=== PATIENT | male | born 2000 | race Caucasian/White ===

== ENCOUNTER 2021-09-21 17:21 | Outpatient (REF) | payer OTHER, SELFPAY ==
[2021-09-21 21:56] LABS: ALT 283 U/L (16-63); AST 99 U/L (15-37); Alkaline Phosphatase 66 U/L (46-116); Anion Gap 9.5 mmol/L (3-11); BUN 14 mg/dL (7-18); Bilirubin, Total 1.4 mg/dL (0.2-1.0); CO2 28.5 mmol/L (21.0-32.0); Calcium 9.6 mg/dL (8.5-10.1); Calculated LDL 116 mg/dL (<100); Chloride 101 mmol/L (98-107); Cholesterol 184 mg/dL (<200); Glucose 85 mg/dL (74-106); HDL Cholesterol 56 mg/dL (40-60); Potassium 4.1 mmol/L (3.5-5.1); Sodium 139 mmol/L (136-145); TSH (W/Ref FT4) 1.81 uIU/mL (0.36-3.74); Triglyceride 61 mg/dL (<150)
[2021-09-21 22:06] LABS: Bilirubin, Direct 0.3 mg/dL (0.0-0.2)
[2021-09-28 11:16] LABS: Hepatitis A Antibody IgM Negative (Negative); Hepatitis B Core Antibody Negative (Negative); Hepatitis B surface Ag Negative (Negative); Hepatitis C Ab w Rflx HCV PCR Negative (Negative)
== END 2021-09-21 17:22 | disposition home or self-care (01) ==
LOC: NCHCN 17:21
PROVIDERS: PCP Nurse Practitioner Family; Visit Provider Nurse Practitioner Family
DX: F32.9 Major depressive disorder, single episode, unspecified (principal); E55.9 Vitamin D deficiency, unspecified; E66.9 Obesity, unspecified; E78.89 Other lipoprotein metabolism disorders
CPT/HCPCS: 80053; 80061; 82306; 86704; 86709; 86803; 87340; 82248; 84443

== ENCOUNTER 2021-11-22 17:44 | Outpatient (REF) | payer OTHER, SELFPAY ==
[2021-11-22 21:16] LABS: ALT 186 U/L (16-63); AST 66 U/L (15-37); Albumin 4.9 g/dL (3.4-5.0); Alkaline Phosphatase 62 U/L (46-116); Bilirubin, Direct 0.2 mg/dL (0.0-0.2); Bilirubin, Total 1.3 mg/dL (0.2-1.0); Total Protein 7.7 g/dL (6.4-8.2)
[2021-11-23 09:40] LABS: Iron 63 ug/dL (65-175); Total Iron Binding Capacity 386 ug/dL (250-450); Transferrin Sat 16 % (20-55)
[2021-11-23 10:08] LABS: Vitamin B12 842 pg/mL (193-986)
[2021-11-23 17:26] LABS: Ferritin 181 ng/mL (22-322)
== END 2021-11-22 17:45 | disposition home or self-care (01) ==
LOC: NCHCN 17:44
PROVIDERS: PCP Nurse Practitioner Family; Visit Provider Nurse Practitioner Family
DX: R74.01 Elevation of levels of liver transaminase levels (principal); R17 Unspecified jaundice; E55.9 Vitamin D deficiency, unspecified
CPT/HCPCS: 80076; 82306; 82607; 82728; 82746; 83540; 83550

== ENCOUNTER 2021-11-26 16:05 | Outpatient (REF) | payer OTHER, SELFPAY ==
[2021-11-26 15:20] LABS: Abs Immature Grans 0.04 10^3/uL (0.0-0.06); Absolute Basophil Count 0.03 10^3/uL (0.0-0.2); Absolute Eosinophil Count 0.15 10^3/uL (0.0-0.7); Absolute Monocyte Count 0.39 10^3/uL (0.1-0.8); Absolute Neutrophil Count 2.69 10^3/uL (1.2-6.7); Basophils % 0.6; Eosinophils % 3.1; HCT 44.7 % (40.0-50.0); HGB 14.8 g/dL (13.5-17.5); Immature Grans % 0.8; Lymphocytes % 32.7; MCH 27.9 pg (27.0-33.0); MCHC 33.1 % (32.0-36.0); MCV 84.3 fL (80-95); MPV 11.5 fL (8.0-11.0); Neutrophils % 54.8; Nucleated RBC 0 %; Platelet Count 230 10^3/uL (130-400); RDW 12.1 % (11.8-14.1); RDW-SD 37.3 fL
[2021-11-26 15:37] LABS: Hemoglobin A1C 5.1 % (<5.7)
[2021-11-26 15:53] LABS: Folate 12.4 ng/mL (8.6-20.0)
[2021-11-29 12:58] LABS: HBs Antibody, Quant 15.5 mIU/mL (See Note); Hepatitis B Surface Ab Positive (See Note)
[2021-11-29 13:12] LABS: Hepatitis B Surface Ag Negative (Negative)
[2021-11-29 13:39] LABS: Hep B Core Antibody Negative (Negative)
== END 2021-11-26 16:06 | disposition home or self-care (01) ==
LOC: NCHCN 16:05
PROVIDERS: PCP Nurse Practitioner Family; Visit Provider Nurse Practitioner Family
DX: R74.01 Elevation of levels of liver transaminase levels (principal); E66.9 Obesity, unspecified; D64.9 Anemia, unspecified
CPT/HCPCS: 86704; 86706; 87340; 82746; 83036; 85025

== ENCOUNTER 2022-08-03 16:46 | Outpatient (REF) | payer OTHER, SELFPAY ==
[2022-08-03 14:00] LABS: HCT 43.1 % (40.0-50.0); HGB 14.8 g/dL (13.5-17.5); MCH 28.7 pg (27.0-33.0); MCHC 34.3 % (32.0-36.0); MCV 84 fL (80-95); MPV 11.2 fL (8.0-11.0); Platelet Count 215 10^3/uL (130-400); RBC 5.15 10^6/uL (4.36-5.78); RDW 12.2 % (11.8-14.1); RDW-SD 37.1 fL; WBC 4.84 10^3/uL (4.4-10.8)
[2022-08-03 14:22] LABS: ALT 129 U/L (16-63); AST 46 U/L (15-37); Albumin 4.5 g/dL (3.4-5.0); Alkaline Phosphatase 57 U/L (46-116); Anion Gap 5.8 mmol/L (3-11); BUN 18 mg/dL (7-18); Bilirubin, Direct 0.2 mg/dL (0.0-0.2); Bilirubin, Total 1.9 mg/dL (0.2-1.0); CO2 29.2 mmol/L (21.0-32.0); CREATININE 1.1 mg/dL (0.70-1.30); Calcium 9.4 mg/dL (8.5-10.1); Chloride 104 mmol/L (98-107); Estimated GFR 97.34 (mL/min/1.73m2); Glucose 90 mg/dL (74-106); Potassium 3.8 mmol/L (3.5-5.1); Sodium 139 mmol/L (136-145); Total Protein 7.7 g/dL (6.4-8.2)
[2022-08-03 14:24] LABS: Hemoglobin A1C 5.5 % (<5.7)
== END 2022-08-03 16:47 | disposition home or self-care (01) ==
LOC: NCHCN 16:46
PROVIDERS: PCP Nurse Practitioner Family; Visit Provider Nurse Practitioner Family
DX: R74.01 Elevation of levels of liver transaminase levels (principal); E80.6 Other disorders of bilirubin metabolism; R79.89 Other specified abnormal findings of blood chemistry
CPT/HCPCS: 80053; 85027; 82248; 83036

== ENCOUNTER 2023-10-02 22:10 | Emergency (ER) | payer OTHER, SELFPAY ==
[2023-10-02 22:30] VITALS: BP 180/103; PULSE 100; RESP 16; TEMP 36.8; O2SAT 99
--- NOTE | 2023-10-02 22:45 | RT.EKG_ITS ---
APPROVED REPORT Exam: Resting ECG Reason for Exam: palpitations Patient Location: E HR:87 bpm ECG Measurements Heart Rate 87 AXIS WY 155 P 30 QRSd 100 QRS 12 QT 345 T 24 QTc 416 Conclusion Sinus rhythm...normal P axis, V-rate 60- 99 Physician: no stemi
[2023-10-02 23:01] LABS: Abs Immature Grans 0.03 10^3/uL (0.0-0.06); Absolute Basophil Count 0.04 10^3/uL (0.0-0.2); Absolute Eosinophil Count 0.09 10^3/uL (0.0-0.7); Absolute Lymphocyte Count 1.44 10^3/uL (1.2-3.4); Absolute Monocyte Count 0.34 10^3/uL (0.1-0.8); Absolute Neutrophil Count 4.96 10^3/uL (1.2-6.7); Basophils % 0.6; Eosinophils % 1.3; HCT 44.3 % (40.0-50.0); HGB 15.3 g/dL (13.5-17.5); Immature Grans % 0.4; Lymphocytes % 20.9; MCH 27.9 pg (27.0-33.0); MCHC 34.5 % (32.0-36.0); MCV 81 fL (80-95); MPV 10.2 fL (8.0-11.0); Monocytes % 4.9; Neutrophils % 71.9; Platelet Count 260 10^3/uL (130-400); RBC 5.49 10^6/uL (4.36-5.78); RDW 12.1 % (11.8-14.1); RDW-SD 35.7 fL
[2023-10-02] MEDS: Lactated Ringers 1,000 ML 1000 ML IV (23:22)
--- NOTE | 2023-10-02 23:26 | ED.GENADUL_ITS ---
Discharge Plan Disposition Patient Disposition: Home Condition: Good Discharge Details Clinical Impression: Hypertension Primary Care Provider: Emelia Velasquez ED Provider: Brian Webb Home Meds and New Rx's Prescriptions: New lisinopril 10 mg tablet 10 mg PO DAILY 60 Days Qty: 60 0RF Discharge Instructions Instructions: Hypertension (ED) Additional Instructions: At this time your workup has returned and is reassuring. Your thyroid function is normal. Your electrolytes are stable. Please avoid caffeinated products. Try to cut down on your nicotine if possible. Please take the lisinopril for your hypertension as directed. Do this for the next 30 to 60 days and please follow-up closely with your primary care provider in the meantime. If you notice any worsening of your symptoms, or any new symptoms such as vomiting, diarrhea, fever, chills, shortness of breath, chest pain, numbness, weakness, or fainting , please return immediately to the emergency department for reevaluation. Please follow up with your primary care provider as soon as possible for reassessment and reevaluation. As always, it was a pleasure participating in your medical care today. Referrals: Emelia Velasquez [Primary Care Provider] - Medical Decision Making This is a pleasant 23-year-old male with no significant past medical history who presents today for elevated blood pressure and a sensation that his heart is beating harder than normal. He states that over the last 3 to 4 days he has noticed the sensations. His heart rate when tested has been around 80. He denies any syncope, lightheadedness or vision changes. He denies any vomiting or diarrhea. He denies any chest pain or shortness of breath. He drinks normally about 2 to 3 cups of coffee per day, but has been cutting down over the last few weeks. Today he only drank half a cup, which has been the norm for the last few days. He does do nicotine pouches, but has not changed or increased these at all. He denies any cocaine or meth use. He has used cocaine once in the distant past but not recently. He does not take any other me dications or supplements. He does have a longstanding history of elevated blood pressure, but has not been on any medication. Previously he has been managing it with diet and exercise. No other complaints at this time. No other modifying factors. No family history of sudden , severe cardiac dysrhythmias, or other concerning history. Exam demonstrates well-appearing male, no thyromegaly. Lung sounds are clear, heart unremarkable. Aside for his hypertension no other abnormalities. Differential includes thyroid dysfunction, electrolyte abnormality. Doubt dysrhythmia. EKG benign, no delta wave, epsilon wave, or other significant abnormalities. Patient is otherwise stable. Will get blood work to evaluate for signs of electrolyte dysfunction or thyroid dysfunction. Will monitor closely and reassess. 11:34 PM. Laboratory workup shows no significant abnormalities. Thyroid function normal. Bilirubin mildly elevated. No abdominal tenderness or pain to suggest choledocholithiasis, cholangitis, or cholecystitis. 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 Patient otherwise stable for discharge. Will give lisinopril 10 mg daily for home use. Discussed red flags for which to return. At this time there is no evidence of significant acute life-threatening etiology from a cardiac perspective or otherwise. I have extensively reviewed the treatment plan and discharge instructions with the patient. I have addressed all patient concerns at this time. The patient was made aware of what symptoms to monitor for that would warrant a return to the emergency department. Discussed the plan with the patient, they demonstrate verbal understanding and agreement with our assessment and plan at this time. The documentation in this chart was dictated using [employer] dictation software. Please excuse any dictation errors. HPI General Date/Time Provider Initiated Documentation: 10/02/23 22:35 . HPI Narrative: This is a pleasant 23-year-old male with no significant past medical history who presents today for elevated blood pressure and a sensation that his heart is beating harder than normal. He states that over the last 3 to 4 days he has noticed the sensations. His heart rate when tested has been around 80. He denies any syncope, lightheadedness or vision changes. He denies any vomiting or diarrhea. He denies any chest pain or shortness of breath. He drinks normally about 2 to 3 cups of coffee per day, but has been cutting down over the last few weeks. Today he only drank half a cup, which has been the norm for the last few days. He does do nicotine pouches, but has not changed or increased these at all. He denies any cocaine or meth use. He has used cocaine once in the distant past but not recently. He does not take any other medications or supplements. He does have a longstanding history of elevated blood pressure, but has not been on any medication. Previously he has been managing it with diet and exercise. No other complaints at this time. No other modifying factors. No family history of sudden , severe cardiac dysrhythmias, or other concerning history. Related Data Home Medications Medication Instructions Recorded Confirmed lisinopril 10 mg tablet 10 mg PO DAILY 60 days #60 tabs 10/02/23 Previous Rx's Medication Instructions Recorded lisinopril 10 mg tablet 10 mg PO DAILY 60 days #60 tabs 10/02/23 Allergies Allergy/AdvReac Type Severity Reaction Status Date / Time No Known Allergies Allergy Unverified 10/02/23 22:40 General Stated Complaint: Palpitatns TOMY: 3 Review of Systems All systems reviewed & are unremarkable except as noted in HPI and below PFSH All Active Problems (Updated 10/02/23 @ 23:31 by Brian Webb DO) Hypertension (Chronic) Social History Smoking/Tobacco Use Status: Never Smoking risk assessment performed?: Yes Alcohol Intake: current Alcohol Intake frequency: holidays/special occasions only Substance use type: does not use Do you feel safe at home: Yes Do you feel safe in your relationship?: Yes Exam Narrative Exam Narrative: 1.Const: Well-nourished, Well-developed, appearing stated age 2.Eyes: PERRL, no conjunctival injection, and symmetrical lids. 3.ENT: Atraumatic external nose and ears. Moist MM. Neck: Symmetric, trachea midline, No thyromegaly. 4.CVS: +S1/S2, No murmurs or gallops. Peripheral pulses 2+ and equal in all ext remities. Brisk capillary refill in all extremities. 5.RESP: Unlabored respiratory effort. Clear to auscultation bilaterally. No wheezes rales or rhonchi 6.GI: Soft, Nontender/Nondistended, No hepatosplenomegaly. No guarding or rebound. 7.MSK: Normocephalic/Atraumatic, Extremities w/o deformity or ttp No cyanosis or clubbing, Normal movement of all extremities 8.Skin: Warm, Dry. No rashes or lesions. 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 Sensation grossly intact, no focal neurologic deficits. 10.Psych: (AAO) x3. Appropriate mood and affect Course Vital Signs Vital signs: Vital Signs Temperature 36.8 C 10/02/23 22:30 Pulse 100 H 10/02/23 22:30 Respiratory Rate 16 10/02/23 22:30 Blood Pressure 180/103 H 10/02/23 22:30 Pulse Oximetry 99 10/02/23 22:30 Temperature 36.8 C 10/02/23 22:30 Temperature Source Temporal Artery Scan 10/02/23 22:30 Pulse 100 H 10/02/23 22:30 Respiratory Rate 16 10/02/23 22:30 Respiratory Effort Normal, Non-Labored 10/02/23 22:35 Blood Pressure 180/103 H 10/02/23 22:30 Blood Pressure Position Sitting 10/02/23 22:30 Pulse Oximetry 99 10/02/23 22:30 Oxygen Delivery Method Room Air 10/02/23 22:30 Oxygen Flow Rate 0 10/02/23 22:30 Lab/Test Results Lab/Test Results: Laboratory Tests Range/Units 10/02/23 22:58 WBC (4.4-10.8) 10^3/uL 6.90 RBC (4.36-5.78) 10^6/uL 5.49 Hgb (13.5-17.5) g/dL 15.3 Hct (40.0-50.0) % 44.3 MCV (80-95) fL 81 MCH (27.0-33.0) pg 27.9 MCHC (32.0-36.0) % 34.5 RDW (11.8-14.1) % 12.1 Plt Count (130-400) 10^3/uL 260 MPV (8.0-11.0) fL 10.2 Immature Gran % 0.4 Neutrophils % 71.9 Lymphocytes % 20.9 Monocytes % 4.9 Eosinophils % 1.3 Basophils % 0.6 Nucleated RBC % (0.0-0.3) % 0.0 Absolute Neutrophils (1.2-6.7) 10^3/uL 4.96 Absolute Lymphocytes (1.2-3.4) 10^3/uL 1.44 Absolute Monocytes (0.1-0.8) 10^3/uL 0.34 Absolute Eosinophils (0.0-0.7) 10^3/uL 0.09 Absolute Basophils (0.0-0.2) 10^3/uL 0.04
[2023-10-02 23:31] LABS: ALT 95 U/L (16-63); AST 29 U/L (15-37); Albumin 4.7 g/dL (3.4-5.0); Alkaline Phosphatase 52 U/L (46-116); Anion Gap 9.4 mmol/L (3-11); BUN 14 mg/dL (7-18); Bilirubin, Total 1.6 mg/dL (0.2-1.0); CO2 27.6 mmol/L (21.0-32.0); CREATININE 1.1 mg/dL (0.70-1.30); Calcium 9.8 mg/dL (8.5-10.1); Chloride 100 mmol/L (98-107); Estimated GFR 96.74 (mL/min/1.73m2); Glucose 110 mg/dL (74-106); Sodium 137 mmol/L (136-145); TSH (W/Ref FT4) 1.28 uIU/mL (0.36-3.74); Total Protein 8.1 g/dL (6.4-8.2)
[2023-10-02 23:50] VITALS: BP 148/91; PULSE 96; RESP 16; O2SAT 96
[2023-10-02] MEDS: Lisinopril 10 MG TAB PO (23:50)
== END 2023-10-02 23:51 | disposition home or self-care (01) ==
PROVIDERS: Emergency Provider Student in an Organized Health Care Education/Training Program; PCP Nurse Practitioner Family
DX: I10 Essential (primary) hypertension (principal)
CPT/HCPCS: 36415; 80053; 93005; 99283; 84443; 85025; 93010; 99284

== ENCOUNTER 2023-10-24 15:40 | Outpatient (REF) | payer OTHER, SELFPAY ==
[2023-10-24 21:36] LABS: Anion Gap 4.8 mmol/L (3-11); BUN 15 mg/dL (7-18); CO2 31.2 mmol/L (21.0-32.0); CREATININE 1.1 mg/dL (0.70-1.30); Chloride 103 mmol/L (98-107); Estimated GFR 96.74 (mL/min/1.73m2); Glucose 104 mg/dL (74-106); Potassium 4.9 mmol/L (3.5-5.1); Sodium 139 mmol/L (136-145)
== END 2023-10-24 15:41 | disposition home or self-care (01) ==
LOC: NCHCN 15:40
PROVIDERS: PCP Nurse Practitioner Family; Visit Provider Nurse Practitioner Family
DX: I10 Essential (primary) hypertension (principal)
CPT/HCPCS: 80048

== ENCOUNTER 2023-11-14 11:41 | Outpatient (REF) | payer OTHER, SELFPAY ==
[2023-11-14 16:13] LABS: Anion Gap 7.3 mmol/L (3-11); BUN 14 mg/dL (7-18); CO2 28.7 mmol/L (21.0-32.0); CREATININE 1.1 mg/dL (0.70-1.30); Calcium 9.7 mg/dL (8.5-10.1); Chloride 103 mmol/L (98-107); Estimated GFR 96.74 (mL/min/1.73m2); Ferritin 225 ng/mL (26-388); Glucose 99 mg/dL (74-106); Potassium 4.2 mmol/L (3.5-5.1); Sodium 139 mmol/L (136-145)
[2023-11-14 16:21] LABS: COMMENT (LAB VIEW ONLY) 147.64 mg/dL; Microalb ug/mg Crea 4.5 ug/mg Cr
== END 2023-11-14 11:42 | disposition home or self-care (01) ==
LOC: NCHCN 11:41
PROVIDERS: PCP Nurse Practitioner Family; Visit Provider Nurse Practitioner Family
DX: I10 Essential (primary) hypertension (principal); R74.01 Elevation of levels of liver transaminase levels; G47.10 Hypersomnia, unspecified
CPT/HCPCS: 80048; 82043; 82570; 82728

== ENCOUNTER 2023-12-19 11:57 | Outpatient (REF) | payer OTHER, SELFPAY ==
[2023-12-19 14:58] LABS: Bacteria Negative HPF (Negative); Epithelial Cells Rare HPF (Negative); RBC 0-2 HPF (0-2); WBC 0-2 HPF (0-5)
[2023-12-19 14:59] LABS: C & S Indicated? No; Casts Negative LPF (Negative); Crystals Negative HPF (Negative); Mucus Negative (Negative)
== END 2023-12-19 11:58 | disposition home or self-care (01) ==
LOC: NCHCN 11:57
PROVIDERS: PCP Nurse Practitioner Family; Referring Provider Nurse Practitioner Family; Visit Provider Nurse Practitioner Family
DX: R31.9 Hematuria, unspecified (principal)
CPT/HCPCS: 81015

== ENCOUNTER 2024-10-31 18:12 | Emergency (ER) | payer OTHER, SELFPAY ==
[2024-10-31 18:21] VITALS: BP 140/107; PULSE 103; RESP 16; TEMP 37.1; O2SAT 97
--- NOTE | 2024-10-31 18:28 | ED.GENADUL_ITS ---
Discharge Plan Disposition Patient Disposition: Home Condition: Stable Discharge Details Clinical Impression: Influenza A Primary Care Provider: Emelia Velasquez ED Provider: Brian Garcia Home Meds and New Rx's Prescriptions: Continued irbesartan [Avapro] 150 mg tablet 150 mg PO DAILY Discharge Instructions Instructions: Flu, Adult ED Additional Instructions: You were seen in the emergency department for your upper respiratory infection, you tested positive for the flu. You are otherwise young and healthy and your oxygen is within normal limits, please use therapeutic dosing of Tylenol (acetamenophen) & Advil (ibuprofen) in an alternating fashion as follows: Take 1000mg of Tylenol every 6 hours without missing doses- that is 4 times per day. [facility] in between the Tylenol dosings, take 400-600mg of Advil also on a 6 hour schedule, that is also 4 times per day. The daily maximum dosing of Tylenol is 4000mg, and the daily maximum dosing of Advil is 2400mg. This is safe to do for weeks. Please note that some common cold medications & prescription pain medications may contain acetamenophen and you need to read OTC drug labels and factor that in to maximum daily dosings. Please take an [id number] cold medicine like Mucinex, drink tea with honey to ease any throat irritation. Please return to the emergency department for any severe increase in chest discomfort or respiratory distress or other emergent concerns. Referrals: Emelia Velasquez [Primary Care Provider] - [facility] General Date/Time Provider Initiated Documentation: 10/31/24 18:28 . HPI Narrative: 24 year-old male presents to ED today by POV/ambulating with a chief complaint of productive cough w/ green sputum, body aches, chills, low-grade fever with onset on Monday- Day 4 of illness. Quality described as generalized respiratory symptoms, no radiation to chest pain, significant shortness of breath, nausea/vomiting, lethargy, syncope/dizziness, bowel/urinary changes. Severity is described as moderate. Palliating factors include nothing specific. Provoking factors include nothing specific. Events leading up to the incident/Associated Symptoms: Patient took 3 at-home Covid tests, is negative- is not vaccinated for Covid, but did get his flu shot this year. Patient not anticoagulated. Related Data Home Medications ?Medication ?Instructions ?Recorded ?Confirmed irbesartan 150 mg tablet (Avapro) 150 mg PO DAILY 10/31/24 10/31/24 Allergies Allergy/AdvReac Type Severity Reaction Status Date / Time No Known Allergies Allergy Unverified 10/31/24 18:40 General Stated Complaint: SOB TOMY: 3 Review of Systems All systems reviewed & are unremarkable except as noted in HPI and below Exam Narrative Exam Narrative: GENERAL APPEARANCE: Well-nourished, non-toxic, awake and alert, atraumatic, no acute distress. SKIN: Warm, pink, dry, intact, without rashes/lesions/ulcerations. HEAD: Normocephalic, atraumatic, normal hair distribution for gender/age. EYES: Normal conjunctiva, no exudates on lids/lashes. ENT: Nares patent, no circumoral cyanosis, no facial swelling NECK: Supple, trachea midline, painless cervical ROM. LUNGS/CHEST: Lungs - mild rhonchi on R, non-labored respirations, normal A/P diameter, symmetrical expansion, no chest wall deformity HEART (CV/PV): Regular rate and rhythm without murmur, no peripheral edema, no JVD. ABDOMEN: Soft, non-distended, no guarding. MSK: Normal ROM, no swelling/deformity to bilateral UEs or LEs, moving all extremities without weakness, no cyanosis, spine midline without tenderness, normal curvature. NEURO: Mental Status AAOx4 - alert to person, place, time, events No facial droop, no forehead involvement. Motor: No focal weakness - strength 5/5 in bilateral UEs and LEs, proximal and distal, symmetric. Sensory: sensation intact to light touch globally. Gait normal: patient ambulated without ataxia into ED room. PSYCH: euthymic, cooperative, pleasant, appropriate speech Course Vital Signs Vital signs: Vital Signs Temperature 37.1 C 10/31/24 18:21 Pulse 103 H 10/31/24 18:21 Respiratory Rate 16 10/31/24 18:21 Blood Pressure 140/107 H 10/31/24 18:21 Pulse Oximetry 97 10/31/24 18:21 Temperature 37.1 C 10/31/24 18:21 Temperature Source Tympanic 10/31/24 18:21 Pulse 103 H 10/31/24 18:21 Respiratory Rate 16 10/31/24 18:21 Blood Pressure 140/107 H 10/31/24 18:21 Blood Pressure Position Sitting 10/31/24 18:21 Pulse Oximetry 97 10/31/24 18:21 Oxygen Delivery Method Room Air 10/31/24 18:21 Oxygen Flow Rate 0 10/31/24 18:21 Pain Level 0 10/31/24 18:21 Medical Decision Making This dictation utilizes [id number] dictation software and may contain unedited grammatical errors. 24 year-old male presents to ED today by POV/ambulating with a chief complaint of productive cough w/ green sputum, body aches, chills, low-grade fever with onset on Monday- Day 4 of illness. Quality described as generalized respiratory symptoms, no radiation to chest pain, significant shortness of breath, nausea/vomiting, lethargy, syncope/dizziness, bowel/urinary changes. Severity is described as moderate. Palliating factors include nothing specific. Provoking factors include nothing specific. Events leading up to the incident/Associated Symptoms: Patient took 3 at-home Covid tests, is negative- is not vaccinated for Covid, but did get his flu shot this year. Patients' medical history: hypertension. Family and social history: Noncontributory. Pertinent exam findings / vital signs include rhonchi in the right lung greater than left, no hypoxia, benign abdomen, nontoxic overall presentation. Differential / pathologies of concern include viral syndrome, pneumonia, unlikely PE. Diagnostic studies of: -Covid/Flu/RSV PCR, XR Chest. -PCR swab shows (+) for Flu A -CXR shows no pneumonia Interventions of: -Tylenol, Motrin, DuoNeb given. ED Course/Assessment/Plan: 24-year-old male presents with upper respiratory infection for the past 4 days, he has some mild rhonchi on the right, test positive for flu, otherwise young and healthy without comorbidities, recommend symptomatic treatment at home with OTC analgesics like Tylenol and Motrin, strict return criteria for any acute worsening despite treatment, outside window for Tamiflu. Findings not consistent with hypoxic respiratory failure. Disposition of influenza A. Patient verbalized understanding of the plan and return to ED criteria and engaged in shared decision making. Medical Records Medical records reviewed: Yes I reviewed the patient's medical records. Imaging Data Radiologic Study: Attestation: I personally reviewed and interpreted this imaging study as follows: Imaging: X-Ray Radiologist's impression: EXAM: XR CHEST 2V PA LATERAL CLINICAL HISTORY: cough R>L rhonchi. TECHNIQUE: 2D digital imaging was performed. COMPARISON: No exams were available for comparison FINDINGS: 2 views: Heart size is normal. The mediastinum is not widened. Lungs are clear. No infiltrates nor pleural effusions. IMPRESSION: No acute pulmonary findings. Lab Data Lab results reviewed: Yes I reviewed the patient's lab results. Labs: Laboratory Tests Range/Units 10/31/24 18:20 COVID-19 Source Nasopharynx SARS-CoV-2 (PCR) (Negative) Negative Influenza Type A (PCR) (Negative) Positive A Influenza Type B (PCR) (Negative) Negative RSV (PCR) (Negative) Negative Quality:SDOH Health Related Social Needs: No Data to Display PFSH All Active Problems (Updated 10/31/24 @ 19:13 by KWAME Tapia) Influenza A (Acute) Social History Smoking/Tobacco Use Status: Never Smoking risk assessment performed?: Yes Alcohol Intake: current Alcohol Intake frequency: holidays/special occasions only Substance use type: does not use Housing: apartment Do you feel safe at home: Yes Do you feel safe in your relationship?: Yes
[2024-10-31 18:33] VITALS: BP 140/107; PULSE 103; RESP 16; TEMP 37.1; O2SAT 97
[2024-10-31 18:36] VITALS: RESP 18
[2024-10-31] MEDS: Ketorolac 10 MG TAB PO (18:53)
[2024-10-31] MEDS: Albuterol/Ipratropium 3 ML UPD VIAL UPD (18:53)
[2024-10-31] MEDS: Acetaminophen 500 MG TAB 1000 MG PO (18:53)
[2024-10-31 19:04] LABS: COVID-19 PCR Negative (Negative); Influenza A PCR Positive (Negative); Influenza B PCR Negative (Negative); RSV PCR Negative (Negative)
[2024-10-31 19:05] LABS: Source Nasopharynx
--- NOTE | 2024-10-31 19:19 | DI.RAD_ITS ---
Exam(s) XR CHEST 2V PA LATERAL EXAM: XR CHEST 2V PA LATERAL CLINICAL HISTORY: cough R>L rhonchi. TECHNIQUE: 2D digital imaging was performed. COMPARISON: No exams were available for comparison FINDINGS: 2 views: Heart size is normal. The mediastinum is not widened. Lungs are clear. No infiltrates nor pleural effusions. IMPRESSION: No acute pulmonary findings. DATA REPOSITORY: RADIATION DOSE DELIVERED:
== END 2024-10-31 19:25 | disposition home or self-care (01) ==
LOC: ER 19:36
PROVIDERS: Emergency Provider Physician Assistant; PCP Nurse Practitioner Family
DX: J10.1 Influenza due to other identified influenza virus with other respiratory manifestations (principal); I10 Essential (primary) hypertension
CPT/HCPCS: 87637; 94640; 99285; 71046; 99284; J7620

== ENCOUNTER 2025-04-23 18:40 | Outpatient (REF) | payer OTHER, SELFPAY ==
[2025-04-23 21:23] LABS: ALT 37 U/L (16-63); AST 21 U/L (15-37); Albumin 4.5 g/dL (3.4-5.0); Alkaline Phosphatase 67 U/L (46-116); Anion Gap 7.8 mmol/L (3-11); BUN 17 mg/dL (7-18); Bilirubin, Total 1.1 mg/dL (0.2-1.0); CO2 30.2 mmol/L (21.0-32.0); Calcium 9.1 mg/dL (8.5-10.1); Chloride 102 mmol/L (98-107); Estimated GFR 121.55 (mL/min/1.73m2); Glucose 101 mg/dL (74-106); Potassium 3.9 mmol/L (3.5-5.1); Sodium 140 mmol/L (136-145); Total Protein 7.8 g/dL (6.4-8.2)
[2025-04-23 22:52] LABS: Hemoglobin A1C 5.2 % (<5.7)
== END 2025-04-23 18:41 | disposition home or self-care (01) ==
LOC: NCHCN 18:40
PROVIDERS: PCP Nurse Practitioner Family; Visit Provider Nurse Practitioner Family
DX: E66.9 Obesity, unspecified (principal); I10 Essential (primary) hypertension
CPT/HCPCS: 80053; 83036